=== PATIENT | male | born 1970 | race Caucasian/White ===

== ENCOUNTER → 2016-11-11 | Outpatient (REF) | payer BC | LOC: LAB 10:04 | PROVIDERS: ATTEND Family Medicine | DX: E11.9 Type 2 diabetes mellitus without complications (principal) | CPT/HCPCS: 83036 ==

== ENCOUNTER → 2017-02-06 | Outpatient (REF) | payer BC ==
[~2017-02-06] MED LIST: ASPI-586 PO; AZIT250T81 PO; Allegra; CLOP75TA3 PO; EZET10TA5 PO; FAMO-119 PO; HYDR-3702 PO; HYDR1TABED PO; MULT-593 PO; NTR.4SL SL; OMEG300C3 PO; PRAV10TA23 PO; singular
== END ==
LOC: LAB 09:42
PROVIDERS: ATTEND Family Medicine
DX: E11.9 Type 2 diabetes mellitus without complications (principal)
CPT/HCPCS: 82570; 83036; 84156